=== PATIENT | female | born 1980 ===

== ENCOUNTER 2021-07-25 10:57 | Emergency (ER) | payer SELFPAY ==
[2021-07-25] MEDS ORDERED: Acetaminophen 500 MG TAB ONE (11:41)
[2021-07-25] MEDS ORDERED: Ketorolac Tromethamine 30 MG/ML VIAL IVP SCH (12:00)
[2021-07-25 12:13] LABS: Pregnancy Test - Urine (BHCG) Negative (Negative); Pregu Control Background? CLEAR/WHITE (CLR/WHITE); Pregu Control Bar Appear? YES (CONTROL BAR); Specific Gravity 1.005 (1.002-1.036)
[2021-07-25 12:47] LABS: #Monocytes 1.2 10x3/uL (0.0-1.1); #Neutrophils 8.7 10x3/uL (1.5-8.4); %Basophils 0.1 % (0.0-2.0); %Lymphocytes 6.7 % (18.0-47.0); %Monocytes 11.2 % (0.0-10.0); %Neutrophils 81.5 % (40.0-75.0); Mean Corpuscular HGB CONC 32.3 g/dL (32.0-36.0); Mean Corpuscular Hemoglobin 24.6 pg (27.0-33.0); Mean Corpuscular Volume 76.2 fl (81.6-98.3); Mean Platelet Volume 10.9 fl (7.4-10.4); Platelet Count 262 10x3/uL (150-450); RBC Distribution Width 13.8 % (11.5-14.5); Red Blood Cell (RBC) Count 4.07 10x6/uL (3.90-5.03); White Blood Cell (WBC) Count 10.7 10x3/uL (3.5-10.5)
[2021-07-25] MEDS ORDERED: Azithromycin 500 MG VIAL ONE (12:57)
[2021-07-25] MEDS ORDERED: cefTRIAXone\\ROCEPHIN 2 GM VIAL ONE (12:57)
[2021-07-25 13:01] LABS: ALT (SGPT) 83 U/L (8-55); AST (SGOT) 71 U/L (5-34); Albumin 3.4 g/dL (3.5-5.0); Alkaline Phosphatase 302 U/L (40-110); Anion Gap 13 mmol/L (10-20); BUN (Urea Nitrogen) 5 mg/dL (7.0-18.7); Bilirubin, Total 0.6 mg/dL (0.2-1.2); CRP (Inflammatory) 17.23 mg/dL (= or < 0.5); Calc. Creatinine Clearance 0 mL/min (70-130); Calcium 7.9 mg/dL (7.8-10.44); Carbon Dioxide 19 mmol/L (22-29); Chloride 101 mmol/L (98-107); Glucose 120 mg/dL (70-105); Potassium 3.3 mmol/L (3.5-5.1); Protein, Total 7.4 g/dL (6.0-8.3); Sodium 130 mmol/L (136-145)
[2021-07-25] MEDS ORDERED: Azithromycin 250 MG TAB ONE (15:15)
== END 2021-07-25 15:46 | disposition home or self-care (01) ==
LOC: CSHERS 10:57
DX: J18.9 Pneumonia, unspecified organism (principal)
CPT/HCPCS: 36415; 71045; 71275; 80053; 81025; 83605; 84484; 85025; 85379; 86140; 87040; 96374; 96375; J0456; J0696; J1885